=== PATIENT | female | born 1995 | race Caucasian/White ===

== ENCOUNTER 2016-06-08 14:12 | Inpatient (IN) | payer MEDICAID, OTHER ==
[~2016-06-08] VITALS: Ht 157.5 cm; Wt 56.2 kg
[2016-06-08 14:19] VITALS: BP 102/62; PULSE 87; RESP 16; O2SAT 96
[2016-06-08 15:04] LABS: APPEARANCE,URINE HAZY (CLEAR,HAZY); COLOR,URINE YELLOW (YELLOW); OCCULT BLOOD,URINE NEGATIVE (NEGATIVE); PH,URINE 7.5 (5.0-8.0)
--- NOTE | 2016-06-08 15:30 | ED.REPORT ---
HPI-Psychiatric Illness Date of Service Jun 08, 2016 ED Provider: Maciej Machado MD A 20 year old female at 36 weeks with a history of depression, suicide attempt, and self-harm presents to the ED reporting depression and suicidal ideation onset approximately 9 months ago. The patient also reports mild vaginal spotting onset a couple of days ago. She denies abdominal cramping or other symptoms. The patient attributes a portion of her suicidality to lack of adequate social support during her current , which is her first. She was placed on Prozac (20mg) on 05/26, with no relief. The patient denies recent drugs or alcohol. She had a previous suicide attempt by sleeping pill overdose a couple of years ago. The patient has discussed her symptoms with her PCP recently. Nursing Notes Stated Complaint: SUICIDAL THOUGHTS Chief Complaint: Psychiatric Complaint Nursing Notes Reviewed: Yes Allergies: Coded Allergies: No Known Allergies (Unverified Allergy, Unknown, 03/24/14) Scheduled Fluoxetine (Fluoxetine) 20 Mg Capsule 20 MG PO DAILY General Time Seen by MD: 15:28 Chief Complaint Depressed, Suicidal ideation Hx Obtained From: Patient Arrived By: Walk-in Onset Occurred: More than a week ago... (>6 months) Symptom Duration: Since onset Severity: Current: No pain currently Severity: Maximum: No pain Associated with: Denies: Fever, Illicit drug use Pertinent Negative: Relieved by nothing Related History: Reports: Depression, Prior suicide attempt(s), Denies: Illicit drug use Immunizations: Unknown Recent Healthcare: Recent doctor visit Similar Sx Previous: Yes Risk-Psychiatric Illness Suicide Risk Stratification RF Statements: Risk factors reviewed Past Medical History Past Medical History Depression Suicidal attempt by sleeping pill overdose Self-harm Past Surgical History None Smoking History Never Smoker Social History Alcohol Use: Denies alcohol use Drug Use: Denies drug use Ambulatory Status Independent Review of Systems Constitutional: Denies: Fever Respiratory: Denies: Non-productive cough, Shortness of breath GI: Denies: Abdominal pain, Diarrhea, Vomiting Psychiatric: Reports: Depression, Suicidal ideation Complete sys rev & neg: except as marked. Female: Reports: Vaginal bleeding - abnl (Spotting, during ) Physical Exam Physical Exam Notes: Initial Vital Signs Vital Signs (First) Date Time Temp Pulse Resp B/P Pulse Ox O2 Delivery O2 Flow Rate FiO2 06/08/16 14:19 36.7 87 16 102/62 96 Room Air Initial VS: Reviewed Head / Eyes: Atraumatic, Normocephalic ENT: Conjunctiva normal, No scleral icterus Neck: Supple, Full range of motion Respiratory: Breath sounds normal, Clear to auscultation, No respiratory distress Skin: Warm, Dry General/Constitutional: Awake, Alert Neurologic: Oriented X3, Speech NL Psychiatric: Cognitive function NL (Mildly) Abnormal Mood/Affect: Positive: Flat affect Abnormal Thinking / Perception: Positive: Suicidal, no plan Cardiovascular: Heart rate NL, Regular rhythm, Heart sounds NL, No gallop, No murmurs, No rubs Abdomen: Atraumatic Gravid abdomen consistent with 36 week Interpretation & Diagnostics URINE DRUG SCREEN: Negative URINE : Positive URINE DIPSTICK: Bedside Urine Specific [place] * 1.015 Bedside Urine pH * 8 Bedside Urine Leukocyte Esterase * + Bedside Urine Nitrite * Negative Bedside Urine Protein * + (30) Bedside Urine Glucose * Normal Bedside Urine Ketones * Negative Bedside Urine Urobilinogen * Normal Bedside Urine Bilirubin * Negative Bedside Urine Occult Blood * Trace Urine to Lab * Yes Lab Results Interpretation Result Diagram: 06/08/16 1557 06/08/16 1557 Test 06/08/16 14:43 06/08/16 15:57 Urine Color Yellow (YELLOW) Urine Appearance Hazy (CLEAR,HAZY) Urine pH 7.5 (5.0-8.0) Urine Specific [place] 1.010 (1.003-1.035) Urine Protein Negativemg/dL (NEG,TRACE) Urine Glucose (UA) Negativemg/dL (NEGATIVE) Urine Ketones 15mg/dL (NEGATIVE) Urine Occult Blood Negative (NEGATIVE) Urine Nitrite Negative (NEGATIVE) Urine Bilirubin Negative (NEGATIVE) Urine Urobilinogen 1.0mg/dL (NORMAL) Urine Leukocyte Esterase Large (NEGATIVE) Urine RBC 0-2/hpf (0-2) Urine WBC 11-50/hpf (0-5) Urine Epithelial Cells Moderate/hpf (NONE-MOD) Urine Crystals None seen (NONE SEEN) Urine Bacteria Few/hpf (NONE-FEW) Urine Hyaline Casts None/lpf (NONE) Urine Granular Casts None seen (NONE SEEN) Urine Waxy Casts None seen (NONE SEEN) Urine Red Blood Cell Casts None seen (NONE SEEN) Urine White Blood Cell Casts None seen (NONE SEEN) Urine Mucus Present (None Seen) Urine Trichomonas None seen (NONE SEEN) Urine Yeast None (NONE SEEN) Urinalysis Comment None Urine Culture Reflexed Indicated White Blood Count 6.8th/mm3 (3.8-10.1) Red Blood Count 3.18mil/mm3 (3.90-5.20) Hemoglobin 9.4g/dL (12.0-15.6) Hematocrit 28.7% (35.0-46.0) Mean Corpuscular Volume 90.3fL (81-100) Mean Corpuscular Hemoglobin 29.6pg (27.0-35.0) Mean Corpuscular Hemoglobin Concent 32.8% (32.0-37.0) Red Cell Distribution Width 13.2% (12.3-15.4) Platelet Count 248bil/L (150-400) Neutrophils (%) (Auto) 72.3% (40-74) Lymphocytes (%) (Auto) 21.3% (14-46) Monocytes (%) (Auto) 5.3% (4-12) Eosinophils (%) (Auto) 0.4% (0-5) Basophils (%) (Auto) 0.3% (0-3) Sodium Level 136mEq/L (134-144) Potassium Level 3.9mEq/L (3.5-5.2) Chloride Level 101mEq/L (97-108) Carbon Dioxide Level 19mmol/L (18-29) Blood Urea Nitrogen 4mg/dL (6-20) Creatinine 0.43mg/dL (0.57-1.00) Estimat Glomerular Filtration Rate 271mL/min (>59) Glucose Level 74mg/dL (60-99) Calcium Level 9.0mg/dL (8.5-10.1) Total Bilirubin 0.4mg/dL (0.0-1.2) Aspartate Amino Transf (AST/SGOT) 15U/L (0-50) Alanine Aminotransferase (ALT/SGPT) 7U/L (0-32) Alkaline Phosphatase 164U/L (25-150) Total Protein 6.2g/dL (6.4-8.4) Albumin 3.2g/dL (3.4-5.0) Thyroid Stimulating Hormone (TSH) 0.262uIU/mL (0.450-4.500) Hold Christy Top Tube Received (Received) Salicylates Level < 3.0ug/mL (30-250) Acetaminophen Level < 15.0ug/mL Rx (10-25) Re-Eval/Medical Decision Med Decision/Clinical Course Pt is a 20 year old female at 36 weeks with a history of depression, suicide attempt, and self-harm presents to the ED reporting depression and suicidal ideation onset approximately 9 months ago. She denies vaginal bleeding , abdominal cramping or other symptoms. The patient attributes a portion of her suicidality to lack of adequate social support during her current , which is her first. She was placed on Prozac (20mg) on 05/26, with no relief. The patient denies recent drugs or alcohol. She had a previous suicide attempt by sleeping pill overdose a couple of years ago. The patient has discussed her symptoms with her PCP recently. Here in the emergency department patient is afebrile with stable vital signs and altered distress. URINE DRUG SCREEN: Negative URINE TEST: Positive Labs: CBC unremarkable other than hematocrit at 28.7 - down from 35.1, although may be due to hemodilution in the setting of . Chemistry: TSH low at 0.262 CMP otherwise unremarkable Tylenol and salicylates negative Urinalysis: Large leukocyte esterase, 11-50 WBC, and few bacteria. At this time, no medical etiology apparent for patient's depression. She presents with multiple social stressors in the setting of and has been seen and evaluated by emergency department social scientist. Recommendation at this time is for psychiatric admission and the patient is in agreement with this plan. Pt to be treated with nitrofurantoin for urinary tract infection. Admitted to psychiatry service in stable condition. Source of Hx: Old records Re-Evaluation/Progress : Time of Eval: 18:15 Patient Status: Condition improved Re-Evaluation/Progress Note: Discussed patient's case with Social Work, who discussed with patient lab results, diagnosis, and plan for admit. Patient agrees with plan for care and all questions were addressed. Consultation #1: Consulted With: steamtable worker Call Returned at: 15:39 Table Maker: Agrees with eval, Agrees with plan Note: Discussed patient's case. Consultation #2: Consulted With: steamtable worker Call Returned at: 18:15 Table Maker: Agrees with eval, Agrees with plan, Accepts admit Note: Patient has been admitted to Dr. Cecilio Hernandez. Counseled Regarding: Diagnosis, Lab results, Need for admission Discharge & Departure Impression: Primary Impression: Suicidal ideation Additional Impressions: Weeks of gestation: 36 weeks Qualified Code: Z3A.36 - 36 weeks gestation of Depression Depression Type: depression during Trimester: third trimester Qualified Code: O99.343 - Other mental disorders complicating , third trimester Acute situational disturbance Urinary tract infection Urinary tract infection type: site unspecified Hematuria presence: without hematuria Qualified Code: N39.0 - Urinary tract infection, site not specified Disposition: ADMITTED TO HOSPITAL Discharge Condition All VS Reviewed: Yes Condition: Improved Referrals: Jarad Woods DO (PCP) Xochitl Attestation Portions of this note were transcribed by Romy Crow. I, Dr. Machado, personally performed the history, physical exam, and medical decision-making; I reviewed and confirmed the accuracy of the information in the transcribed note. Signed by: Xochitl Peguero, 06/08/2016, 21:35 copies to: Jarad Woods Beck O MD Jun 08, 2016 15:30 ROMY CROW Jun 08, 2016 15:41
[2016-06-08 16:10] LABS: BASOPHILS % (AUTO) 0.3 % (0-3); EOSINOPHILS % (AUTO) 0.4 % (0-5); MONOCYTES % (AUTO) 5.3 % (4-12); Mean Corpuscular Hemoglobin 29.6 pg (27.0-35.0); Mean Corpuscular Volume 90.3 fL (81-100); NEUTROPHILS % (AUTO) 72.3 % (40-74); Platelet Count 248 bil/L (150-400)
--- NOTE | 2016-06-08 16:24 | NUR ---
OB: Called to ER to get FHT's. FHT's was 132 via doppler, no decel audible. Pt reports +FM.
[2016-06-08 18:22] VITALS: BP 104/63; PULSE 90; RESP 18; O2SAT 98
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
[2016-06-08] MEDS: diphenhydrAMINE 25 mg Capsule PO PRN (21:02)
[2016-06-08] MEDS ORDERED: FLUO20CA25 PO (22:33)
[2016-06-08] MEDS: Nitrofurantoin Monohyd-Macrocryst 100 mg Capsule PO SCH (22:40)
--- NOTE | 2016-06-09 01:28 | NUR ---
Observations 1900 to 0700 Pt arrived on the floor at 19:35 and was able to complete the entire intake process. Pt affect was flat. Pt had a visitor form a teen group after her intake was completed. Pt was shown to her room where she has remained ever since. Pt first appeared asleep at 22:30 and was observed every 15 minutes through the night as directed.
--- NOTE | 2016-06-09 05:56 | NUR ---
Nursing Note Supply Crib Attendant. Pt asleep at start of shift and slept uninterrupted the duration of the shift. No issues reported or observed. Monitored pt with q 15 minute face checks for safety and locations.
[2016-06-09] MEDS: Nitrofurantoin Monohyd-Macrocryst 100 mg Capsule PO SCH ×2 (08:54→20:08)
[2016-06-09] MEDS ORDERED: Alum-Mag Hydrox-Simeth 30 mL Suspension PO PRN (10:40)
[2016-06-09] MEDS ORDERED: Magnesium Hydroxide 10 mL Oral Concentration PO PRN (10:40)
[2016-06-09] MEDS ORDERED: Benzocaine-Menthol Lozenge 2/Pkg PO PRN (10:40)
[2016-06-09 10:57] VITALS: BP 109/66; PULSE 97; RESP 17
--- NOTE | 2016-06-09 13:54 | NUR ---
Nursing Note [id number] Behavior S/O: Pt out of room on unit most of the day. Little interaction seen with peers. Pt is polite & cooperative. Pt appears nervous & looks around wide eyed. She was involved with groups & enjoyed the dog brought on unit for pet therapy. VS stable. Appetite good. Pt took medications as ordered. A: Pt has difficulty engaging on unit. Depression continues. P: Provide supportive environment. Monitor medications & effects.
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
--- NOTE | 2016-06-09 16:20 | NUR ---
Obs Dayshift Pt spent most of the day in the milieu looking out the window or watching TV. Pt appears very withdrawn, sad, depressed and not really paying attention to her surroundings. Pt is quiet, reserved w/ peers, keeps to herself. Pt joined Comm meet and dog group, brightened slightly with the dog. Pt did not attend other game groups or activities. Good ADL's, Good meals
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
--- NOTE | 2016-06-09 21:08 | NUR ---
nursing note evening shift S)"I feel gross" O) pt requested clean clothes and a shower, stated felt much better after shower, worked on coloring and sat in milieu for most of shift, did not socialize ate meals, states is having a girl and has a name for her, had mentor [facility] visit her today which she said went well, good eye contact appears shy and very soft spoken, anxiety "a little" denies thoughts of self harm A) cooperative, took shower, denies SI, T 128 P) monitor q 15 min for safety, encourage nutrition and participation in treatment
--- NOTE | 2016-06-10 06:03 | NUR ---
Sleep Adequate sleep through the night with no noted distress or anxiety per protocol checks. Total sleep 7.5+ hours.
[2016-06-10] MEDS: Nitrofurantoin Monohyd-Macrocryst 100 mg Capsule PO SCH ×2 (09:23→21:11)
--- NOTE | 2016-06-10 11:31 | PCM.PNPSY ---
Subjective Date of Service Jun 10, 2016 Subjective I spent 30 minutes both reviewing treatment plan with clinical team, interviewing the patient and providing supportive/educational psychotherapy. I spent less than 50% of the time counseling the patient the patient could only tolerate a brief interaction. I reviewed the treatment plan with the patient and discussed options available including the potential risks, benefits and side effects. Florence reports a marked improvement in mood, stating that she is significantly brighter today. She states she is feeling more stable because her roommate situation is tenuous and the hospital tends to provide her with more structure.a member of the teen group that she was in visited her yesterday. She feels like she is not so alone and is beginning to have more hope about the future. She is beginning to future plan how to take care of herself and her baby. Currently denies suicidal ideation plan or intent. Staff reports that she has been active and participating well in one-to-one unit and group activities. She slept 8 hours and denies depression manic or psychotic symptoms review. She denies medication side effects. Patient was able to identify her medications and what they were used to treat. Current Medications Current Medications Diphenhydramine HCl 25 mg Q4H PRN PO Last administered on 06/08/16 21:02; Admin Dose 25 MG; Start 06/08/16 at 20:10 Fluoxetine HCl 20 mg DAILY PO Last administered on 06/10/16 09:23; Admin Dose 20 MG; Start 06/10/16 at 08:30 Nitrofurantoin 100 mg BID PO Last administered on 06/10/16 09:23; Admin Dose 100 MG; Start 06/08/16 at 22:40 Mental Status Exam Appearance: Neat/well groomed Attitude: Pleasant, Cooperative Behavior: No unusual behavior Affect: Well Modulated/Appropriate Mood: Euthymic Thought Process/Associations: Logical/Sequential, Goal Directed Speech Production: Normal Speech Rate: Normal Speech Articulation: Normal Thought Content: Appropriate Danger to Self/Suicidal Ideati: None Danger to Others: None Consciousness: Alert Orientation: Person, Place, Date, Situation Memory: Grossly Intact Estimate Intellectual Function: Below Average Basis for IQ estimate: Awareness current events, Word use/vocabulary, Educational history, Employment history Attention/Concentration & Cogn: Grossly Intact Insight: Good Judgement: Limited Result Diagram: 06/08/16 1557 06/08/16 1557 Mental Health Plan Florence is a 20-year-old, single, white female who is due to give shortly. She has been isolated socially and financially and is feeling overwhelmed by these stressors. As a result, she has been struggling for months with depression with multiple symptoms and only partial response to Prozac being started on May 26, 2016. She had suicidal ideation 72 hours prior to admission and came to the emergency department seeking safety and treatment. Today she is reporting a marked improvement in mood partially due to the safety and structure That she is receiving here on the unit. She is beginning to future plan how to take care of herself and her child. She is working on a different home situation all here on the unit. Manchester Manchester I 1. Depression, unspecified. 2. Rule out major depression. 3. History of bulimia. [place] IIDeferred. Manchester [id number] gestation, urinary tract infection. [place] IVSevere. Manchester VCurrent global assessment of functioning currently equal to 35. Medications Treatments Patient is being provided with a high degree of safety through the structure and active adult engagement. We will focus on developing improved coping skills and identifying stressors that may have led to current episode. We will attempt to: Integrate into therapeutic groups, milieu and individual therapy. Maintain in a closely monitored and structured unit Provide low-stimulation environment Obtain collateral data to assist in treatment planning Assess degree of lability of affect and impulse control Complete safety plan Decrease frequency of relapse and need for re-hospitalization Denies thoughts of harm to self and/or others Establish a consistent sleep pattern Medication effective in stabilization of mood and/or thought process Reduce the risk of imminent harm to self and/or others by providing a safe environment Tolerates medication without side effects Patient will be on the following psychiatric medications: 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 Labs: Hematocrit 28 Address patient's legal status Voluntary Disposition: Patient currently homeless and staying at friend's homes. Anticipated length of stay 2-3 additional days. Cecilio Hernandez MD Jun 10, 2016 11:31
[2016-06-10 15:44] VITALS: BP 102/58; PULSE 87
[2016-06-10 15:45] VITALS: BP 102/58; PULSE 87; RESP 17
--- NOTE | 2016-06-10 17:00 | NUR ---
Nursing Day Shift- S- "I'm good." O- Pt. was awake for breakfast. She appeared soft spoken and polite. She expressed a concern about possible labor contractions that she denied being painful. An RN from the [facility] assessed the Pt., obtained FHT's then monitored for contractions. See paper note in the chart. No contractions were observed. Pt. denied suicidal thoughts. A- Pt. expressed feeling upbeat and future oriented regarding community support. Addendum: 06/10/16 at 1705 by DUKE YUSUF RN P- Cont. BHTP
--- NOTE | 2016-06-10 17:14 | NUR ---
Counseling/Particle Board Supervisor: S/O: Patient slept 7.5+ hours last night per staff. She denies S/I and H/I. She denies auditory an visual hallucinations. Depression is 0/10 and anxiety is 1/10. When asked her mood, patient stated, "Good." A: Patient is cooperative, pleasant, euthymic, limited judgment. P: Follow care plan, coordinate out-patient providers and housing.
--- NOTE | 2016-06-10 18:16 | NUR ---
OBSERVATION DAY SHIFT Pt was out in common areas much of shift, working on a puzzles, looking out the window, and walking the halls. Participated in relaxation group. Pt was quiet, reserved and kept to mostly herself though she did interact with staff and peers when approached. Ate 90% of lunch, 80% dinner.
--- NOTE | 2016-06-10 18:36 | NUR ---
NURSING NOTE [id number] Mood: "good" *smiles* Affect: quiet, brightens in conversation Behavior: pt. has been visible all shift in the DR, coloring and being social w/select peers. Thought processes: logical, linear, denies SI/HI. No thought disturbances noted.
--- NOTE | 2016-06-11 03:43 | NUR ---
nursing, nights, 11-7 s/o- has appeared to sleep after 2300 during q 15 minute assessments. a- no apparent distress. p- monitor behavior/emotional state, quality, times and amount of sleep, use and effect of medication. jasson
[2016-06-11] MEDS: Nitrofurantoin Monohyd-Macrocryst 100 mg Capsule PO SCH ×2 (08:17→20:44)
[2016-06-11 09:35] VITALS: BP 83/49; PULSE 82; RESP 16
--- NOTE | 2016-06-11 10:58 | NUR ---
Nursing Day Shift- S- "I feel a little tired, but not dizzy. I'm going to stay with one of the director's of the teen mom group, then I'm going to stay with another director after the baby is born. Then I'll start looking for an apartment. They will baby sit while I look for a job or go to school." O- Pt. was awake and dressed for breakfast. She reported disrupted sleep due to the weight of the . Pt's BP was 83/49. She was walking with a steady gait and denied feeling dizzy. Repeat at 1109 was 101/53. A- Pt. denied thoughts of self harm. She appeared upbeat and future oriented. P- Cont. bHTP.
--- NOTE | 2016-06-11 13:47 | PCM.PNPSY ---
Subjective Date of Service Jun 11, 2016 Subjective I spent 30 minutes both reviewing treatment plan with clinical team, interviewing the patient and providing supportive/educational psychotherapy. I spent more than 50% of the time counseling the patient. I reviewed the treatment plan with the patient and discussed options available including the potential risks, benefits and side effects. Florence repeats a marked improvement in mood, she is significantly brighter today. She is future planning and is beginning to have more hope about the future. She is beginning to future plan how to take care of herself and her baby. Currently denies suicidal ideation plan or intent. Staff reports that she has been active and participating well in one-to-one unit and group activities. She slept 8 hours and denies depression manic or psychotic symptoms review. She detailed a reasonable safety plan with me. She denies medication side effects. Patient was able to identify her medications and what they were used to treat Current Medications Current Medications Fluoxetine HCl 20 mg DAILY PO Last administered on 06/11/16t 08:16; Admin Dose 20 MG; Start 06/10/16 at 08:30 Mental Status Exam Appearance: Neat/well groomed Attitude: Pleasant, Cooperative Behavior: No unusual behavior Affect: Well Modulated/Appropriate Mood: Euthymic Thought Process/Associations: Logical/Sequential, Goal Directed Speech Production: Normal Speech Rate: Normal Speech Articulation: Normal Thought Content: Appropriate Danger to Self/Suicidal Ideati: None Danger to Others: None Consciousness: Alert Orientation: Person, Place, Date, Situation Memory: Grossly Intact Estimate Intellectual Function: Below Average Basis for IQ estimate: Awareness current events, Word use/vocabulary, Educational history, Employment history Attention/Concentration & Cogn: Grossly Intact Insight: Good Judgement: Limited Result Diagram: 06/08/16 1557 06/08/16 1557 Mental Health Plan Florence is a 20-year-old, single, white female who is due to give shortly. She has been isolated socially and financially and is feeling overwhelmed by these stressors. As a result, she has been struggling for months with depression with multiple symptoms and only partial response to Prozac being started on May 26, 2016. She had suicidal ideation 72 hours prior to admission and came to the emergency department seeking safety and treatment. Today she is reporting a marked improvement in mood partially due to the safety and structure That she is receiving here on the unit. She is beginning to future plan how to take care of herself and her child. She is working on a different home situation all here on the unit. Anticipate discharge in the morning. Lindsay Lindsay I 1. Depression, unspecified. 2. Rule out major depression. 3. History of bulimia. Lindsay IIDeferred. Lindsay [id number] gestation, urinary tract infection. Lindsay IVSevere. Lindsay VCurrent global assessment of functioning currently equal to 40. Medications Treatments Patient is being provided with a high degree of safety through the structure and active adult engagement. We will focus on developing improved coping skills and identifying stressors that may have led to current episode. We will attempt to: Integrate into therapeutic groups, milieu and individual therapy. Maintain in a closely monitored and structured unit Provide low-stimulation environment Obtain collateral data to assist in treatment planning Assess degree of lability of affect and impulse control Complete safety plan Decrease frequency of relapse and need for re-hospitalization Denies thoughts of harm to self and/or others Establish a consistent sleep pattern Medication effective in stabilization of mood and/or thought process Reduce the risk of imminent harm to self and/or others by providing a safe environment Tolerates medication without side effects Patient will be on the following psychiatric medications: 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 Labs: Hematocrit 28 Address patient's legal status Voluntary Disposition: Patient currently homeless and staying at friend's homes. Anticipated length of stay 1 additional day Cecilio Hernandez MD Jun 11, 2016 13:47
[2016-06-11 14:00] VITALS: BP 101/53; PULSE 74
--- NOTE | 2016-06-11 18:31 | NUR ---
NURSING NOTE [id number] Mood: "happy" *smiles* Affect: bright, pleasant, cooperative Behavior: visible in DR working on coloring projects and socializing w/peers. RN from [facility] came to assess FHT which were 135. Pt. ate 100% of her dinner. A member from her Teen Mom organization visited. Thought processes: logical, linear. Denies SI. Reports she feels "so much better" since coming to the unit. Futuristic and motivated for discharge tomorrow.
--- NOTE | 2016-06-11 19:53 | NUR ---
Observations 0900 to 0 Pt was guarded, minimally social, withdrawn and flat. Pt speech and eye contact was good. Pt was in and out of his room most of the shift. Pt attended meals in D.R. had a good appetite and ate 100% of her meals. Pt maintained behavior throughout the shift. Pt was polite and cooperative. Pt attend art group and unit activities. Pt went out on patio with staff to get some fresh air. Pt did not attend community and did not set a daily goal. Pt had a few visitors and it appeared to go well. Pt was observed every 15 minutes throughout the shift as ordered.
[2016-06-12] MEDS: diphenhydrAMINE 25 mg Capsule PO PRN (00:34)
--- NOTE | 2016-06-12 03:39 | NUR ---
nursing, nights, 11-7 s- i'm having trouble sleeping, i'm itchy. can i have some benadryl ? thank you. o- has appeared to sleep after 2345. up at 0035 and received 25 mg of benadryl and easily returned to sleep. assessed q 15 minutes. a- interrupted sleep, no apparent distress. p- monitor behavior/emotional state, quality, times and amount of sleep, use and effect of medication. jasson
[2016-06-12] MEDS: Nitrofurantoin Monohyd-Macrocryst 100 mg Capsule PO SCH (08:21)
[2016-06-12] MEDS ORDERED: DIPH25CA6 PO (11:49)
[2016-06-12] MEDS ORDERED: FLUO20CA25 PO (11:49)
--- NOTE | 2016-06-12 11:53 | PCM.DIMED ---
Discharge Instructions Date of Service Jun 12, 2016 Dates of Hospitalization Jun 08, 2016 at 19:45 Discharge Diagnosis Discharge Diagnosis Kinmundy I1. Depression, unspecified. 2. Rule out major depression. 3. History of bulimia. [place] IIDeferred. Kinmundy [id number] gestation, urinary tract infection. [place] IVSevere. [place] VCurrent global assessment of functioning currently equal to 35. Medication Instructions I Strongly encouraged patient to follow up with outpatient care: 1-Recommended patient takes medication as prescribed and not alter this unless under the direct care of a provider. 2-Recommend client refrain from recreational drugs and alcohol while taking psychiatric medications. Diet No restrictions Activity No restrictions Call your provider Fever or Chills Patient Instructions Florence to follow-up with Dr. Jarad Woods 06/18/2016 at 3:[address] [facility] Client follow-up with [facility] for outpatient psychiatric support Follow-up with PCP in: 2 weeks Cecilio Hernandez MD Jun 12, 2016 11:53
--- NOTE | 2016-06-12 12:37 | NUR ---
NURS DISCHARGE NOTE Patient cooperative with discharge process. Acknowledges understanding of d/c instructions and has a copy with them upon leaving unit at 1235. Belongings accounted for and with patient. Prescriptions faxed/called to patients home pharmacy. Patient denies harmful thoughts and hallucinations at this time.
--- NOTE | 2016-06-12 14:22 | NUR ---
Counseling/Presentation Manager: S/O: Patient slept 5 hours last night per staff. She denies S/I and H/I. She denies auditory an visual hallucinations. Depression is 0/10 and anxiety is 1/10. When asked her mood, patient stated, "Glad to discharge." Out-patient appointments: [facility], 06/16/16 at 8:30am and Dr. Jarad Woods, [facility], 06/18/16 at 3:50pm. A: Patient is cooperative, pleasant, hopeful, bright, future oriented. P: Follow care plan, coordinate out-patient providers and housing.
--- NOTE | 2016-06-12 23:34 | DIS ---
[address] [address] DISCHARGE SUMMARY PATIENT: RACHEL GOLDBERG : 1995 MR#: [id number] ADMIT: 06/08/2016 JOB ID: [id number] DIS: 06/12/2016 IDENTIFICATION: Patient is a 20-year-old, single, white female, currently 36 weeks living with friends in the [place] area. REASON FOR ADMISSION: Client presented to the ED with suicidal ideation and plan to hang herself or overdose. SUMMARY OF PRESENT ILLNESS: Patient is a 20-year-old, single, white female, who is due to give in the next month. She has been socially isolated and financially is feeling overwhelmed by the stressors. As a result, she has been struggling for months with symptoms of depression and only a partial response to Prozac that was started on May 26, 2016. She had suicidal ideation for 3 hours prior to admission and came to the emergency for safety and treatment. HOSPITAL COURSE: Client admitted to our unit and was provided with a high degree of safety through the structure and active adult engagement she received here. We had her participate in one-to-one unit and group activities focused on improving coping skills and coming up with a safety plan should suicidal ideation recur as an outpatient. She participated well in all the above and detailed a reasonable safety plan to me. Her medications were continued of Prozac 20 mg daily. She had a urinary tract infection and was given a course of nitrofurantoin. MENTAL STATUS EXAM: Client neatly dressed, calm, pleasant. Mood was good, affect was bright, normal intensity. Thought process: Client is able to relate a coherent history. Thought content: Denies suicidal ideation. Themes of future planning for how to take care of her needs. Denied suicidal ideation, plan, or intent. Insight and judgment markedly improved. Impulse control highly contained. Competence to handle current stressors appears to be at baseline. DISCHARGE DIAGNOSIS: AXIS I: 1. Depression, unspecified. 2. Rule out major depression. 3. History of bulimia. AXIS II: Defer. AXIS III: At 36 weeks gestation, urinary tract infection. AXIS IV: Severe. AXIS V: Current Global Assessment of Functioning equal to 45. 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 Client also to follow up with [facility] for intake early next week. ACTIVITIES AND DIET: Recommend client refrain from recreational drugs and alcohol with taking psychiatric medications. CONDITION ON DISCHARGE: Good. PROGNOSIS: Good.
== END 2016-06-12 12:35 | disposition home or self-care (01) | DRG 781 ==
LOC: SED 14:12 → UNDOADMIN 18:36 → MHC 18:36
PROVIDERS: ADMIT Psychiatry & Neurology Psychiatry; ATTEND Psychiatry & Neurology Psychiatry
DX: O99.343 Other mental disorders complicating pregnancy, third trimester (principal); R45.851 Suicidal ideations; O23.43 Unspecified infection of urinary tract in pregnancy, third trimester; F32.9 Major depressive disorder, single episode, unspecified; Z3A.36 36 weeks gestation of pregnancy

== ENCOUNTER 2016-07-20 01:27 | Inpatient (IN) | payer OTHER ==
[~2016-07-20] VITALS: Ht 157.5 cm; Wt 60.3 kg
[~2016-07-20 01:27] MED LIST: DIPH25CA6 PO; FLUO20CA25 PO
[2016-07-20] MEDS ORDERED: Ondansetron 2 mg/mL 2 mL Inj IVPUSH PRN ×2 (07:50→17:35)
[2016-07-20] MEDS ORDERED: Oxytocin 10 Unit/mL Inj IM PRN (07:50)
[2016-07-20] MEDS ORDERED: Oxytocin 30 Units/500 mL LR 30 UNITS in IV Premix 1 EACH IV PRN (07:50)
[2016-07-20] MEDS ORDERED: Methylergonovine 0.2 mg/mL Inj IM PRN (07:50)
[2016-07-20] MEDS ORDERED: Sodium Chloride LOK Flush 10 mL Syringe IVFLUSH PRN (07:50)
[2016-07-20] MEDS ORDERED: Hemorrhage Kit, Post Partum XX ONE (07:50)
[2016-07-20] MEDS ORDERED: Carboprost 250 mCg/mL Inj IM PRN (07:50)
[2016-07-20] MEDS ORDERED: Lactated Ringer's 1,000 ML IV PRN (07:50)
[2016-07-20] MEDS ORDERED: fentaNYL-PF 50 mCg/mL 2 mL Inj IVPUSH PRN (07:50)
[2016-07-20] MEDS: Lactated Ringer's 1,000 ML IV SCH ×2 (08:06→19:54)
[2016-07-20 08:10] LABS: Mean Corpuscular Hemoglobin 28.5 pg (27.0-35.0); Mean Corpuscular Volume 88.7 fL (81-100)
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
[2016-07-20] MEDS ORDERED: Lactated Ringer's 500 ML IV ONE (17:33)
[2016-07-20] MEDS ORDERED: Lactated Ringer's 1,000 ML IV SCH (17:33)
[2016-07-20] MEDS ORDERED: Atropine 1 mg/10 mL (Code) Syringe IVPUSH PRN (17:35)
[2016-07-20] MEDS ORDERED: fentaNYL 2 mCg/mL-Bupiv 0.125% 100 ML EPIDURAL SCH (17:35)
[2016-07-20] MEDS ORDERED: EPHEDrine Sulfate 50 mg/mL Inj IVPUSH PRN (17:35)
--- NOTE | 2016-07-20 18:59 | PCM.HPOB ---
Subjective Date of Service: July 20, 2016 Referring Provider: Admitting Physician: Jarad Woods DO Primary Care Physician: Jarad Woods DO Attending Physician: Jarad Woods DO Chief Complaint contractions, induction for post dates History of Present History of Present Illness 20 yo at 41w2d by certain LMP (LORETTA of 07/11/16) and 24wk US presents for induction due to post dates. She presented last night for contractions every 2- 3 minutes that started around 1830 last evening and had become progressively stronger throughout the night. She had no cervical change and was sent home. She returned this morning at 0700 as scheduled for a post dates induction. Currently denies leaking fluids, vaginal bleeding, headaches or vision changes. OB history: Pt was late to care, initially seen by Griffin Massey in the free clinic in [place] where initial labs were performed. Pt was not able to get insurance until 26wks of and had her first office visit with me at 27wks. At our first visit in clinic she was found to have +chlamydia test and was treated appropriately with azithromycin. She is certain of her LMP but her 24wk US show an LORETTA of 07/25/16 (+/- 2 weeks). 2 subsequent US in the 3rd trimester were concordant on the due dates of the 24wk scan. She has had anemia throughout the and has been taking iron in addition to her vitamin. She has also had a pruritic maculopapular rash that started shortly after becoming and has been present the entire time. It has been unresponsive to antifungal and steroid creams, and Benadryl does not help with the itching. A biopsy showed findings consistent with pupps, and the rash does have the appearance of this, however the clinical time course is different. She notes that the past several months the rash has improved without any treatment, which again does not fit with pupps. During this she has had difficult social situation and trouble with depression, including an admission for suicidal thoughts. She was started on fluoxetine and has done remarkably well after beginning this medication. She is not interested in counseling at this time. She admitted to THC use in early but discontinued this practice after our first visit and several urine drug tests done throughout this have all been negative. Past medical history: Depression Past surgical history: Negative Medications: vitamin daily, ferrous sulfate 325 mg twice a day, fluoxetine 40 mg daily Social history: Formerly used marijuana but discontinued after her first visit, has lived in a variety of situations most recently living with a friend who has been present with her at her visits. She has had support from a teen mom group at a local [employer]. Denies tobacco and etoh use 10 point review of systems is conducted and is negative unless otherwise mentioned above. Allergy Coded Allergies: No Known Allergies (Unverified Allergy, Unknown, 03/24/14) Exam Vital Signs 106/65 76 37.0 18 Exam FHT baseline 135, mod BTBV, +accels, no decels initially but later several variable decels Category I and II Objective cervix: 3cm, posterior, medium consistency, -3, 50% effaced Constitutional: Well-developed, Well-nourished, Normal habitus HEENT: Atraumatic, PERRLA, EOMI, Scleral Anicteric Lungs: Clear to Auscultation, Clear to Percussion, Normal Air Movement Heart: Exam Unremarkable, Regular Rate/Rhythm, Normal S1, Normal S2, No Murmurs /Rubs/Gallops Fundus 36cm Abdomen: Gravid, Normal bowel sounds, Soft, No tenderness Extremities: Pulses Palpable x4, Warm, No Edema Skin: Rashes (maculo-papular rash over entire torso and arms) Neurological/Psychiatric: Alert, Oriented X3, Cooperative Neuro: Grossly Neurologically Intact, Reflexes 2+ Gynecologic: Normal: Adnexa/Parametria, Anus/Perineum, Bladder, Breasts, Cervix , External Genitalia, Rectal, Urethral Meatus, Uterus, Vagina/Pelvic Support Labs/Diagnostics Labs Laboratory Tests 72 Hours Test 07/20/16 07:10 White Blood Count 9.1th/mm3 (3.8-10.1) Red Blood Count 3.37mil/mm3 (3.90-5.20) Hemoglobin 9.6g/dL (12.0-15.6) Hematocrit 29.9% (35.0-46.0) Mean Corpuscular Volume 88.7fL (81-100) Mean Corpuscular Hemoglobin 28.5pg (27.0-35.0) Mean Corpuscular Hemoglobin Concent 32.1% (32.0-37.0) Red Cell Distribution Width 13.8% (12.3-15.4) Platelet Count 225bil/L (150-400) Ultra Sound PATIENT NAME: RACHEL GOLDBERG MR#: [id number] LOCATION: [facility] ORDERING PHYS: Peggy Jarad Cannon DATE OF SERVICE: 07/09/16 1022 PROCEDURE: US OB FOLLOW UP GROWTH AND TRANSVAGINAL INDICATIONS: SMALLER THAN DATES OUTSIDE/PRIOR DATING DATA: Last menstrual period (LMP): 10/12/15. LMP-based estimated date of delivery (LORETTA): 06/2516. First dating scan (date and location): 04/03/16, [facility]. Estimated date of delivery (LORETTA) from first dating scan: 07/25/16. TECHNIQUE: Real-time scanning was performed of the fetus, with image documentation and biometric measurements. COMPARISON: [facility], , OB FOLLOW UP GROWTH, 05/18/2016, 13: 05. FINDINGS: General: A single living intrauterine gestation is present. Presentation: Vertex/spine to the right side. Placenta: Placental position is anterior, without previa. OB-SPIRAL [facility]ER Ultrasound Procedure Report Summary Fetus Summary Estimated Gestational Age from first dating scan: 37 weeks, 5 days Estimated Gestational Age from present scan: 36 weeks, 5 days Estimated Weight (EFW): 3129 g EFW percentile rank: 45 % Heart Rate: 137 bpm Findings(Amniotic Sac) Amniotic Fluid Index: 13.40 cm Biometry BiometryGroup Biparietal Diameter (Mean): 8.75 cm Gestational Age (BPD): 35 weeks, 2 days Head Circumference (Mean): 32.37 cm Gestational Age (HC): 36 weeks, 4 days Abdominal Circumference (Mean): 33.50 cm Gestational Age (AC): 37 weeks, 3 days Femur Length (Mean): 7.37 cm Gestational Age (FL): 37 weeks, 5 days Pelvis and Uterus Cervix Length: 3.74 cm Measurement variability in biometric dating: +/- 10 days from 12-20 weeks gestation, +/- 2 weeks from 20-30 weeks gestation, +/- 3 weeks at 30 weeks gestation or more. Other: Not applicable. IMPRESSION: 1. Single live intrauterine gestation with a gestational age of 37 weeks, 5 days , which is concordant with the dates by the initial scan. 2. Estimated weight percentile of 45%. Dictated by: Madie Fox M.D. on 07/09/2016 at 15:23 Approved by: Madie Fox M.D. on 07/09/2016 at 15:27 Maternal Blood Type: A Hx Rho(D) Immune Globulin: No Antibody Screen: Negative Group B Strep Results: Negative Previous with GBS: No Rubella: Non-Immune Lab History: Negative for: Hx Chicken Pox, Hx Gonorrhea, Hx HIV, Hx Herpes, Hx Syphilis OB Intrapartum Assessment/Plan Assessment Impression: 1. 20 yo at 41w2d by certain LMP and 24 wk US here for induction due to post dates 2. Currently having mild ctx q2-3 min with no cervical change overnight 3. GBS neg 4. Category I and II tracings prior to any interventions 5. Poor social situation 6. Anemia 7. 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 Desires epidural 9. Bentley score of 2, unfavorable cervix 10. Rubella non-immune Plan: 1. As pt has some category II tracings, has mild ctx q2-3 min, we will choose cervical balloon for induction/cervical ripening and plan to avoid pharmacologic induction agents 2. Epidural when cervix >4-5 cm 3. Social work consult 4. Monitor FHT closely 5. Expectant management. 6. MMR after delivery Problems: (1) Qualifiers: Weeks of gestation: 41 weeks Qualified Code: Z3A.41 - 41 weeks gestation of Status: Acute ICD Code: Z33.1 Jarad Woods DO July 20, 2016 08:16
--- NOTE | 2016-07-20 19:30 | PCM.HPANE ---
Patient Data Date of Service: July 20, 2016 Surgeon Admitting Provider:Jarad Woods DO Attending Provider:Jarad Woods DO Primary Care Physician:Jarad Woods DO Other Provider: Reason for Visit Induction INDUCTION Ht/WT & BMI Height (Centimeters): 158 Weight (Kilograms): 60.3 Body Mass Index 24.3 Allergies Coded Allergies: No Known Allergies (Unverified Allergy, Unknown, 03/24/14) Past Anesthesia History Anesthesia History: Denies:: Anesthesia Reactions Diabetes History Hx Diabetes?: No MRSA MRSA: No Medications Hypertension Medication: No Home Meds Incl Beta Kerri: No Active Scripts Fluoxetine 20 Mg [id number] Mg PO DAILY #30 CAPSULE Prov:Cecilio Hernandez MD 06/12/16 diphenhydrAMINE HCl (Benadryl)25 Mg [id number] Mg PO Q4H PRN For Agitation #14 CAPSULE Prov:Cecilio Hernandez MD 06/12/16 History History of ENT Problems?: No HEENT History: Denies:: Abnormal Airway Cataracts Difficult Intubation Dysphagia Glaucoma Hearing Problem Sinus Problem TMJ Denture Type: None Teeth Condition: Within Normal Limits Hx of Heart Problems?: No Cardiovascular History: Denies:: Congestive Heart Failure Hypertension Hx of Respiratory Problem?: No Respiratory History: Denies:: Tuberculosis Hx Neurologic Problems?: No Neurological History: Denies:: Alzheimer's Disease CVA Dementia Dizziness Headaches Multiple Sclerosis Parkinson's Disease Peripheral Neuropathy Seizures TIA Hx of GI Problems?: No Hx of Problems?: No HX of Peritoneal Dialysis: No Female Hx: Positive for:: Currently (36 weeks) Hx Musculoskeletal Problems?: No Psycho Social History: Positive for:: Anxiety Hx Depression Suicide Attempt (OD sleeping pills age 16 ) Denies:: Bipolar Disorder Hx Surgeries?: No Other History: Denies:: Hospitalization Hx Diabetes: No Hx Alcohol Use: NoHx Substance Use: Yes (alcohol, marijuana ) Smoking Status: Never Smoker Have You Smoked inLast 12 mo: Yes Stop/Bang Treated for Sleep Apnea?: No Do You Have a CPAP Machine?: No TAPAN Risk Assessment: Low Risk, <3 Yes Risk Assessment Category Category 1A: Patient has history of documented sleep apnea, and HAS NOT received any narcotic, sedative or anesthesia administration during this stay. Category 1B: Patient has history of documented sleep apnea, and HAS received any narcotic , sedative or anesthesia administration during this stay Category 2: Patient has SUSPECTED Obstructive Sleep Apnea, and HAS received any narcotic , sedative or anesthesia administration during this stay. Category 3: Patient has SUSPECTED Obstructive Sleep Apnea and HAS NOT received narcotic, sedative or anesthesia administration during this stay. Category 4: Outpatient in Procedural Areas with known sleep apnea or who screen positive for High Risk via the STOP/BANG questionnaire. Exam Exam Vital Signs BP 104/64, HR 89, RR 16, O2 100% RA General Appearance: Alert, Oriented X3, Cooperative HEENT/AIRWAY: MP 1, Neck Movement (Full), Mouth Opening (Wide) Lungs: Clear to Auscultation, Normal Air Movement Heart: Regular Rate/Rhythm, Normal S1 Meds/Labs/Diagnostics Admission Meds Current Medications Lactated Ringer's (Lr) 1,000 ml @ 125 mls/hr Q8H IV Last administered on t 08:06; Start 07/20/16 at 07:50 Labs Test 07/20/16 07:10 White Blood Count 9.1th/mm3 (3.8-10.1) Red Blood Count 3.37mil/mm3 (3.90-5.20) Hemoglobin 9.6g/dL (12.0-15.6) Hematocrit 29.9% (35.0-46.0) Mean Corpuscular Volume 88.7fL (81-100) Mean Corpuscular Hemoglobin 28.5pg (27.0-35.0) Mean Corpuscular Hemoglobin Concent 32.1% (32.0-37.0) Red Cell Distribution Width 13.8% (12.3-15.4) Platelet Count 225bil/L (150-400) Plan Impression Patient chart reviewed, patient interviewed and anesthestic plan with risks, benefits, and alternatives discussed, and informed consent obtained. ASA Physical Status: ASA2 Mod Systemic Disease Anesthetic Plan: Epidural Bene/Risks/Altern/Consents: Yes HP Complete Prior to Induction: Yes Vish Browne MD July 20, 2016 14:43
[2016-07-21] MEDS ORDERED: Oxytocin 30 Units/500 mL LR 30 UNITS in IV Premix 1 EACH IV PRN
[2016-07-21] MEDS ORDERED: Witch Hazel-Glycerin Pads TOPICAL PRN
[2016-07-21] MEDS ORDERED: Codeine-APAP 30-300 mg Tablet PO PRN
[2016-07-21] MEDS ORDERED: LANOlin HPA 7 Gm Ointment TOPICAL PRN
[2016-07-21] MEDS ORDERED: Benzocaine (Dermoplast) 20% 60 Gm Spray TOPICAL PRN
[2016-07-21] MEDS ORDERED: Measles-Mumps-Rubella Vaccine 0.5 mL Inj SUBQ ONE
--- NOTE | 2016-07-21 00:12 | PCM.OBVAG ---
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 pt tolerated procedure well Specimen none Blood Loss & Administration Estimated Blood Loss: 200 Blood Admin during procedure: No Post Procedure Plan Post delivery Condition: Mom stable, Baby stable to nursery copies to: Jarad Woods Gary R DO July 21, 2016 00:12
[2016-07-21] MEDS ORDERED: Sodium Chloride LOK Flush 10 mL Syringe IVFLUSH SCH (00:30)
--- NOTE | 2016-07-21 07:03 | PCM.ANEP1 ---
Post Anesthesia PACU Phase 1 Assessment Date of Service: July 21, 2016 Vital Signs See OB documentation. Anesthetic Administered: Epidural Level of Alertness: Sleepy, easy to arouse GARRISON's with Equal Strength: Yes Pain: No Pain Scale Score: 0 Nausea or Vomiting: No CV Function and Hydration: No Airway Device: Oxygen Delivery: Room Air Lungs: Normal Air Movement Dermatome Level: Full Sensation PACU Phase 2 Assessment Complications: No Follow up Care: No Patient Instructions Provided: N/A Vish Browne MD July 21, 2016 07:03
[2016-07-21 08:04] LABS: Mean Corpuscular Hemoglobin 27.9 pg (27.0-35.0); Mean Corpuscular Volume 88.6 fL (81-100)
--- NOTE | 2016-07-21 18:25 | PCM.PNOBPP ---
Subjective Date of Service July 21, 2016 Post : Spontaneous Vaginal Delivery Subjective Pain well controlled with minimal pain meds. Bleeding slightly more than a period. Considering control options at this time. Lochia: Normal Pain Management: PO pain meds Gastrointestinal: Good Appetite, No N/V, Passing Flatus Postop Activity: Ambulating Independently Group B Strep Results: Negative Rubella: Non-Immune Blood Type: A Labs Laboratory Tests 07/21/16 07:45: White Blood Count 18.1, Red Blood Count 3.15, Hemoglobin 8.8, Hematocrit 27.9, Mean Corpuscular Volume 88.6, Mean Corpuscular Hemoglobin 27.9, Mean Corpuscular Hemoglobin Concent 31.5, Red Cell Distribution Width 14.0, Platelet Count 197 Exam Vital Signs Vital Signs: VS reviewed, stable Exam Abdomen: Uterus is (midline, at umbilicus), Fundus firm, Abdomen soft Perineum: Laceration : Voiding without difficulty Extremities: No cords, Normal pulses, No tenderness/swelling, No edema Lungs: Clear to Auscultation, Clear to Percussion, Normal Air Movement Heart: Exam Unremarkable, Regular Rate/Rhythm, Murmur General: Alert, Oriented X3 OB Post Assessment/Plan Problems: (1) Qualifiers: Weeks of gestation: 41 weeks Qualified Code: Z3A.41 - 41 weeks gestation of Status: Acute ICD Code: Z33.1 Pain Evaluation: Adequate Pain Control Post plan: Continue routine post care, Discharge home tomorrow Time Spent: 30 min Jarad Woods DO July 21, 2016 18:25
--- NOTE | 2016-07-22 07:40 | PCM.DIOB ---
Obstetrical Disch Instruction Date of Service: July 22, 2016 Dates of Hospitalization Date of Hospital Admission July 20, 2016 at 06:52 Providers Admitting Physician: Jarad Woods DO Primary Care Physician: Jarad Woods DO Attending Physician: Jarad Woods DO Discharge Diagnosis Problems: (1) Qualifiers: Weeks of gestation: 41 weeks Qualified Code: Z3A.41 - 41 weeks gestation of Status: Resolved ICD Code: Z33.1 Diet Discharge Diet: No restrictions Activity Discharge Activity-General: Pelvic Rest for 6 weeks, Try not to overdue, Be up and about, Balance rest and activity, Activity as pain allows, Activity as energy allows Dressing and Incisional Care Hygiene: May shower, Perineal care, Sitz bath, Dermoplast spray, Witch Roxy pads, Ice Follow Up Plan Follow Up Plan Follow up with Dr. Woods in 4-6 weeks in clinic for visit Call your provider for: Fever or Chills, Shortness of breath, Heavy vaginal bleeding, Heavy bleeding, Epigastric pain, Excessive constipation, Vaginal discomfort, Red painful breasts Jarad Woods DO July 22, 2016 07:40
[2016-07-22] MEDS ORDERED: ACET1TAB42 PO (07:44)
[2016-07-22] MEDS ORDERED: IBUP-1827 PO (07:44)
[2016-07-22] MEDS ORDERED: DOCU-41 PO (07:44)
[2016-07-22] MEDS ORDERED: FERR-74 PO (07:44)
[2016-07-22 08:29] VITALS: BP_SYST 105; BP_SYST 126; BP_DIAS 60; BP_DIAS 69; PULSE 83; PULSE 88; RESP 17
--- NOTE | 2016-07-27 15:00 | PCM.DC.OB ---
Obstetrical Discharge Summary Date of Service July 22, 2016 Date of hospital admission July 20, 2016 at 06:52 Date of Discharge: July 22, 2016 Providers Admitting Physician: Jarad Baldwin DO Primary Care Physician: Jarad Baldwin DO Attending Physician: Jarad Baldwin DO Problems: (1) Qualifiers: Weeks of gestation: 41 weeks Qualified Code: Z3A.41 - 41 weeks gestation of Status: Resolved ICD Code: Z33.1 Brief History and Physical: 20 yo at 41w2d by certain LMP (LORETTA of 07/11/16) and 24wk US presents for induction due to post dates. She presented last night for contractions every 2- 3 minutes that started around 1830 last evening and had become progressively stronger throughout the night. She had no cervical change and was sent home. She returned this morning at 0700 as scheduled for a post dates induction. Currently denies leaking fluids, vaginal bleeding, headaches or vision changes. OB history: Pt was late to care, initially seen by Griffin Massey in the free clinic in [place] where initial labs were performed. Pt was not able to get insurance until 26wks of and had her first office visit with me at 27wks. At our first visit in clinic she was found to have +chlamydia test and was treated appropriately with azithromycin. She is certain of her LMP but her 24wk US show an LORETTA of 07/25/16 (+/- 2 weeks). 2 subsequent US in the 3rd trimester were concordant on the due dates of the 24wk scan. She has had anemia throughout the and has been taking iron in addition to her vitamin. She has also had a pruritic maculopapular rash that started shortly after becoming and has been present the entire time. It has been unresponsive to antifungal and steroid creams, and Benadryl does not help with the itching. A biopsy showed findings consistent with pupps, and the rash does have the appearance of this, however the clinical time course is different. She notes that the past several months the rash has improved without any treatment, which again does not fit with pupps. During this she has had difficult social situation and trouble with depression, including an admission for suicidal thoughts. She was started on fluoxetine and has done remarkably well after beginning this medication. She is not interested in counseling at this time. She admitted to THC use in early but discontinued this practice after our first visit and several urine drug tests done throughout this have all been negative. Past medical history: Depression Past surgical history: Negative Medications: vitamin daily, ferrous sulfate 325 mg twice a day, fluoxetine 40 mg daily Social history: Formerly used marijuana but discontinued after her first visit, has lived in a variety of situations most recently living with a friend who has been present with her at her visits. She has had support from a teen mom group at a local [employer]. Denies tobacco and etoh use 10 point review of systems is conducted and is negative unless otherwise mentioned above. Hospital Course: [place] had an unremarkable delivery. She delivered a healthy 6 lbs. 2 oz. baby girl with Apgars of 8 and 9 and had a small first-degree perineal laceration that was repaired with 3. 0 Vicryl without complication. Her pain was well controlled with ibuprofen and 1 dose of Tylenol 3. Breast-feeding is going well. She is ambulating without difficulty. She has no problems urinating and is passing gas, although that she has not moved her bowels. She is interested in discussing control options in follow-up. Discharge exam: Gen. appearance: No acute distress. Alert and oriented. Well-nourished well- developed. HEENT: Pupils equally round and reactive to light. Mucous membranes moist. Neck: Supple without lymphadenopathy no thyromegaly or nodules appreciated. Heart: regular rate and rhythm without murmur rub or gallop Lungs: Clear to auscultation bilaterally. Abdomen: Fundus is firm and at the level of the umbilicus soft, nontender, nondistended, positive bowel sounds, no hepatosplenomegaly appreciated, no masses Extremities: Without edema, 2 out of 4 distal pulses. Skin: without rash Neuro: No gross deficits of cranial nerves or bilateral upper/lower extremities appreciated. Acetaminophen/Codeine 300-30mg (Acetaminophen/Codeine 300-30mg) 1 Each Tablet 1- 2 TABLET PO Q4H PRN PRN For Pain Prescribed by: JARAD BALDWIN DO Docusate Sodium (Colace) 100 Mg Capsule 100 MG PO BID Prescribed by: JARAD BALDWIN DO Ferrous Sulfate (Feosol) 325 Mg Tablet 325 MG PO BIDWM Prescribed by: JARAD BALDWIN DO Fluoxetine (Fluoxetine) 20 Mg Capsule 20 MG PO DAILY Prescribed by: CESAR BRANDT MD Ibuprofen (Ibuprofen) 600 Mg Tablet 600 MG PO Q6H PRN PRN For Mild Pain Prescribed by: JARAD BALDWIN DO Discontinued Medications diphenhydrAMINE HCl (Benadryl) 25 Mg Capsule 25 MG PO Q4H PRN PRN For Agitation Prescribed by: CESAR BRANDT MD Disposition Home Follow-up plan 4-[address] Baldwin Discharge Diet: No restrictions Discharge Activity-General: Pelvic Rest for 6 weeks, Try not to overdue, Be up and about, Balance rest and activity, Activity as pain allows, Activity as energy allows Time spent 30 minutes copies to: Jarad Baldwin Gary R DO July 22, 2016 07:36
== END 2016-07-22 10:55 | disposition home or self-care (01) | DRG 775 ==
LOC: FBC 06:52
PROVIDERS: ADMIT Emergency Medicine; ATTEND Emergency Medicine
PROC: 10E0XZZ Delivery of Products of Conception, External Approach (ICD-10-PCS; principal; 2016-07-21)
PROC: 0HQ9XZZ Repair Perineum Skin, External Approach (ICD-10-PCS; 2016-07-21)
PROC: 10907ZC Drainage of Amniotic Fluid, Therapeutic from Products of Conception, Via Natural or Artificial Opening (ICD-10-PCS; 2016-07-21)
PROC: 3E0334Z Introduction of Serum, Toxoid and Vaccine into Peripheral Vein, Percutaneous Approach (ICD-10-PCS; 2016-07-21)
PROC: 0U7C7ZZ Dilation of Cervix, Via Natural or Artificial Opening (ICD-10-PCS; 2016-07-21)
DX: O48.0 Post-term pregnancy (principal); O70.0 First degree perineal laceration during delivery; Z23 Encounter for immunization; Z3A.41 41 weeks gestation of pregnancy; Z37.0 Single live birth